=== PATIENT | male | born 1970 | race Caucasian/White ===

== ENCOUNTER 2022-02-28 09:24 | Emergency (ER) | payer MEDICARE ==
[2022-02-28] MEDS ORDERED: methylPREDNISolone Sod Succ/PF 125 MG/2 ML VIAL ONE (10:13)
[2022-02-28] MEDS ORDERED: Ondansetron PF 4 MG/2 ML Vial ONE (10:14)
[2022-02-28] MEDS ORDERED: Ketorolac Tromethamine 30 MG/ML VIAL ONE (10:14)
[2022-02-28] MEDS ORDERED: HYDROmorphone 0.5 MG/0.5 ML SYRINGE ONE ×2 (10:14→12:26)
[2022-02-28 10:26] LABS: SARS-CoV-2 NAA Rapid Test Not Detected (NotDetected)
[2022-02-28 10:53] LABS: Hemoglobin 13.6 g/dL (13.5-17.5); Mean Corpuscular HGB CONC 35.7 g/dL (32.0-36.0); Mean Corpuscular Hemoglobin 30.4 pg (27.0-33.0); Mean Platelet Volume 9.9 fl (7.4-10.4); Platelet Count 150 10x3/uL (150-450); RBC Distribution Width 12.8 % (11.5-14.5); Red Blood Cell (RBC) Count 4.48 10x6/uL (4.32-5.72); White Blood Cell (WBC) Count 0.8 10x3/uL (3.5-10.5)
[2022-02-28 10:54] LABS: ALT (SGPT) 28 U/L (8-55); AST (SGOT) 23 U/L (5-34); Albumin 3.5 g/dL (3.5-5.0); Alkaline Phosphatase 96 U/L (40-110); Anion Gap 15 mmol/L (10-20); BUN (Urea Nitrogen) 10 mg/dL (8.9-20.6); Bilirubin, Total 0.9 mg/dL (0.2-1.2); Calc. Creatinine Clearance 0 mL/min (70-130); Calcium 8.8 mg/dL (7.8-10.44); Carbon Dioxide 25 mmol/L (22-29); Chloride 101 mmol/L (98-107); Estimated GFR 105; Globulin 2.9 g/dL (2.4-3.5); Glucose 109 mg/dL (70-105); MDiff Complete? YES; Potassium 3.6 mmol/L (3.5-5.1); Protein, Total 6.4 g/dL (6.0-8.3); Sodium 137 mmol/L (136-145)
[2022-02-28 11:13] LABS: Lymphocytes 74 % (21-51); Monocytes 14 % (0-10); Neutrophil 4 % (42-75); Reactive Lymphocytes 8 % (0-10)
[2022-02-28 11:14] LABS: Platelet Morphology Comment Appears Adequate
[2022-02-28] MEDS ORDERED: Piperacillin/Tazobactam 4.5 GM VIAL ONE (11:30)
[2022-02-28] MEDS ORDERED: Vancomycin HCl 500 MG VIAL ONE (12:14)
[2022-02-28] MEDS ORDERED: Nystatin 500,000 UNITS/5 ML UDCUP SSW SCH (12:15)
== END 2022-02-28 13:25 | disposition short-term general hospital (02) ==
LOC: CSHERS 09:24
DX: D70.9 Neutropenia, unspecified (principal); R50.81 Fever presenting with conditions classified elsewhere; B37.0 Candidal stomatitis; Z20.822 Contact with and (suspected) exposure to COVID-19; I10 Essential (primary) hypertension; F17.210 Nicotine dependence, cigarettes, uncomplicated; Z79.899 Other long term (current) drug therapy
CPT/HCPCS: 71045; 80053; 83605; 85025; 87040; U0002; 36415; 96361; 96365; 96367; 96375; 96376; J1170; J1885; J2405; J2543; J2930; J3370